=== PATIENT | female | born 2000 | race Caucasian/White ===

== ENCOUNTER 2024-12-23 02:39 | Emergency (ER) | payer OTHER ==
[~2024-12-23] VITALS: Ht 165.1 cm; Wt 77.3 kg
[2024-12-23 02:53] VITALS: BP 130/86; PULSE 86; RESP 16; TEMP 98.2; O2SAT 99
[2024-12-23 03:17] LABS: BASOPHILS % (AUTO) 0.5 % (0.0-2.0); EOSINOPHILS % (AUTO) 2.4 % (1.0-6.0); HEMOGLOBIN 13.3 g/dL (12.0-16.0); LYMPHOCYTES # (AUTO) 4.2 K/uL (1.0-4.8); LYMPHOCYTES % (AUTO) 37.5 % (22.0-44.0); MEAN CORPUSCULAR HEMOGLOBIN 30.9 pg (26.0-34.0); MEAN CORPUSCULAR VOLUME 91 fL (80-100); MONOCYTES # (AUTO) 0.6 K/uL (0.1-1.0); MONOCYTES % (AUTO) 4.9 % (2.0-9.0); NEUTROPHILS # (AUTO) 6.1 K/uL (1.8-7.7); NEUTROPHILS % (AUTO) 54.7 % (40.0-70.0); PLATELET COUNT (AUTO) 322 K/uL (150-450); RED CELL DISTRIBUTION WIDTH 12.5 % (11.5-14.5); WHITE BLOOD COUNT (AUTO) 11.2 K/uL (4.5-11.0)
[2024-12-23] MEDS: SODIUM CHLORIDE 0.9% 1,000 ML IV ONE (04:19)
== END 2024-12-23 06:50 | disposition home or self-care (01) ==
LOC: EMS 02:43
DX: O20.0 Threatened abortion (principal); Z3A.00 Weeks of gestation of pregnancy not specified
CPT/HCPCS: 99284; 96360; 76801; 84702; 85025; 86901; 36415; J7030